=== PATIENT | female | born 1960 | race Caucasian/White ===

== ENCOUNTER 2023-05-21 05:30 | Outpatient (CLI) | payer BC ==
[~2023-05-21] VITALS: Ht 157.5 cm; Wt 42.9 kg
[2023-05-21] MEDS ORDERED: LEVO88TA2 PO (13:09)
[2023-05-21] MEDS ORDERED: LEVO100T PO (13:09)
== END 2023-05-21 15:00 | disposition home or self-care (01) ==
LOC: PREOP 05:30
PROVIDERS: ATTEND Surgery
DX: Z01.818 Encounter for other preprocedural examination (principal)

== ENCOUNTER 2023-05-28 08:49 | Day surgery (SDC) | payer BC ==
[~2023-05-28] VITALS: Ht 157.5 cm; Wt 42.9 kg
[2023-05-28] VITALS (11 sets, daily range): BP systolic 106–130; BP diastolic 63–75
[~2023-05-28 08:49] MED LIST: LEVO100T PO; LEVO88TA2 PO
[2023-05-28] MEDS ORDERED: HYDR-3817 PO (09:00)
[2023-05-28] MEDS ORDERED: morphine INJ 10 MG/ML 1ML (SYR OR VIAL) IVP PRN (09:00)
[2023-05-28] MEDS ORDERED: ONDANSETRON INJECTION 4 MG/2 ML (SDV) IVP PRN ×2 (09:00→11:45)
[2023-05-28] MEDS ORDERED: ACETAMINOPHEN 325 MG TABLET PO PRN (09:00)
[2023-05-28] MEDS ORDERED: HYDROcodone/ACETAMINOPHEN 5 MG/325 MG TABLET PO ONE (09:00)
--- NOTE | 2023-05-28 09:00 | Discharge Inst-Surgical ---
D/C Lap Instructions-KIDO Reconcile Patient Problems Problems Reviewed?: Yes New, Converted, or Re-Newed RX: RX on Chart Follow Up Appt in 2 weeks Activity as tolerated No driving for 24 hours No driving while on pain medications Incentive Spirometry use every 2 hours while awake Regular Diet Symptoms to Report: Fever over 101 degree F, Nausea/Vomiting Infection Signs and Symptoms to report: Increased redness, Foul odor of wound, Increased drainage Bathing instructions: May shower Operative Area Clean/Dry; Keep incision clean/dry If any problems/questions: Contact your physician or go to Emergency Room DOMINIC MCCALL APRN May 28, 2023 09:00
--- NOTE | 2023-05-28 09:01 | Progress Note-Pre Operative ---
Pre-Operative Progress Note Date H&P Reviewed: May 28, 2023 Time H&P Reviewed: 09:00 History & Physical: H&P Reviewed, Patient Examed, No changes noted Pre-Operative Diagnosis: Incisional hernia DOMINIC MCCALL APRN May 28, 2023 09:01
[2023-05-28] MEDS ORDERED: ceFAZolin INJECTION 1,000 MG in NS (IVPB) 50 ML 50 ML IV ONE (09:15)
[2023-05-28] MEDS: LACTATED RINGERS 1,000 ML 1,000 ML IV PRN ×2 (09:26→10:50)
[2023-05-28] MEDS ORDERED: LIDOCAINE 2% w/EPI 1:100,000 20 ML VIAL ONE ×2 (09:35→10:25)
[2023-05-28] MEDS ORDERED: LIDOCAINE PF 2% 5 ML VIAL ONE (09:50)
[2023-05-28] MEDS ORDERED: fentaNYL INJECTION 100 MCG/2 ML VIAL ONE (09:50)
[2023-05-28] MEDS ORDERED: proPOfol INJECTION 200 MG/20 ML VIAL IV ONE (09:50)
[2023-05-28] MEDS ORDERED: dexAMETHasone INJ 10 MG/ML 1 ML VIAL ONE (09:50)
[2023-05-28] MEDS ORDERED: ONDANSETRON INJECTION 4 MG/2 ML (SDV) ONE (09:50)
[2023-05-28] MEDS ORDERED: GLYCOPYRROLATE INJ 0.2 MG/ML 2 ML VIAL ONE (10:46)
[2023-05-28] MEDS ORDERED: PHENYLEPHRINE 100 MCG/ML 10 ML (ANESTHESIA) SYR ONE (10:51)
--- NOTE | 2023-05-28 11:24 | Progress Note-Post Operative ---
Post-Operative Progess Note Surgeon (s)/Lap Winding Machine Operator (s) Surgeon JOANNE JOHNSON MD Lap Winding Machine Operator: ruba adrian COMMAND AND CONTROL Pre-Operative Diagnosis Incisional hernia Post-Operative Diagnosis same(3cm) Procedure & Operative Findings Date of Procedure 05/28/23 Procedure Performed/Findings open ventral abdominal incisional hernia repair with mesh. Anesthesia Type get Estimated Blood Loss Estimated blood loss (mL): minimal Specimens/Packing Specimens Removed hernia sac JOANNE JOHNSON MD May 28, 2023 11:24
[2023-05-28] MEDS ORDERED: SEVOFLURANE (ULTANE) 15 ML INHAL SOLN ONE (11:27)
[2023-05-28] MEDS ORDERED: morphine INJ 10 MG/ML 1ML (SYR OR VIAL) IVP ONE (11:45)
[2023-05-28] MEDS ORDERED: HYDROmorphone INJECTION 2 MG/ML VIAL IV ONE (11:45)
--- NOTE | 2023-05-28 12:04 | Anesthesia-General Post-Op ---
General Patient Condition Mental Status/LOC: Same as Preop Cardiovascular: Satisfactory Nausea/Vomiting: Absent Respiratory: Satisfactory Pain: Controlled Complications: Absent Post Op Complications Complications None Follow Up Care/Instructions Patient Instructions None needed. Anesthesia/Patient Condition Patient Condition Patient is awake in PACU and doing well, no complaints, stable vital signs, no apparent adverse anesthesia problems. No complications reported per nursing. JOSE MADERA DO May 28, 2023 12:04
[2023-05-28] MEDS ORDERED: HYDROcodone/ACETAMINOPHEN 5 MG/325 MG TABLET ONE (13:15)
--- NOTE | 2023-05-28 20:24 | OPERATIVE REPORT ---
DATE OF SERVICE: 05/28/2023 PREOPERATIVE DIAGNOSIS: Symptomatic ventral abdominal incisional hernia, reducible. POSTOPERATIVE DIAGNOSIS: Symptomatic ventral abdominal incisional hernia, reducible with a defect approximately 2.5 cm in size. SURGEON: Joanne Johnson MD DOCK GRADER: Cuba Vázquez APRN ANESTHESIA: General endotracheal. ESTIMATED BLOOD LOSS: Minimal. FINDINGS: Symptomatic ventral abdominal incisional hernia, reducible with a defect approximately 2.5 cm in size. DISPOSITION: The patient tolerated the procedure well. INDICATIONS: The patient is a 62-year-old female who developed an outpouching and pain in the lower pole of the midline laparotomy incision in the past few months. She developed significant abdominal pain and was found to have a perforated appendicitis as well as a pelvic abscess requiring a midline laparotomy, as well as washout. She states that after that surgery, she developed a bulge and an outpouching in the lower aspect of the incision, which has grown larger in size and become painful. Upon examination, she was found to have a reducible yet painful ventral abdominal incisional hernia. She is otherwise eating well and having normal bowel movements. DESCRIPTION OF PROCEDURE: The patient was brought to the operating room, laid supine on the table. After adequate IV pain and sedative medications and general endotracheal intubation, the abdomen was prepped and draped in the standard surgical fashion. Lidocaine 2% with epinephrine was used to anesthetize the overlying skin vertically along the previous scar of the midline incision. A skin incision was then made using a #15 blade. Subcutaneous tissue was then dissected using electrocautery. The hernia sac was identified and completely dissected out to the fascial base using Metzenbaum scissors. The hernia sac was then opened using Metzenbaum scissors with only some mild omental adhesions to the hernia sac. The hernia sac was then fully excised under direct visualization using electrocautery. The fascial defect was approximately 2.5 cm in size. A 8-cm round polypropylene mesh was then placed into the defect and sutured in a transfascial manner to the mesh using 0 Prolene interrupted sutures. Good hemostasis was observed. Subcutaneous tissue was then reapproximated using 3-0 Vicryl interrupted sutures and the skin was closed using 4-0 Monocryl running subcuticular suture. Wound was then cleaned and covered with Dermabond. The area of the hernia was then filled with tonsil sponges followed by 4 x 4 gauze, followed by large Op-Site, followed by an abdominal binder. The patient tolerated the procedure well. We will start IV and oral pain medication as well as a clear liquid diet. Once tolerating clears with good pain control with oral pain medication and is ambulating well, we will discharge her home where she will be instructed to keep the abdominal binder on both day and night for the next 2 weeks and only remove to shower. We will also recommend keeping the pressure dressing on to prevent seroma for the next 5 days. She is also instructed to do no heavy lifting or exertion for the next 6 weeks as well. Job ID: [id number] DocumentID: [id number] Dictated Date: 05/28/2023 11:30:27 It Applications Developer Date: 05/28/2023 20:21:00 Dictated By: JOANNE JOHNSON MD
== END 2023-05-28 14:05 | disposition home or self-care (01) ==
LOC: SDC 08:49
PROVIDERS: ATTEND Surgery
DX: K43.2 Incisional hernia without obstruction or gangrene (principal)
CPT/HCPCS: 49591; 87081; C1781